=== PATIENT | male | born 1990 | race Caucasian/White ===

== ENCOUNTER 2022-05-15 19:27 | Emergency (ER) | payer BC ==
[~2022-05-15] VITALS: Ht 188 cm; Wt 113.4 kg
== END 2022-05-15 19:58 | disposition home or self-care (01) ==
LOC: ER 19:27
DX: U07.1 COVID-19 (principal)
CPT/HCPCS: 96361; 96365; 96375; 99282

== ENCOUNTER → 2025-02-05 | Outpatient (CLI) | payer SELFPAY ==
[2025-02-05 19:30] LABS: Bun/Creatinine Ratio 16.2 (12.0-20.0); Creatinine, Blood 0.99 mg/dL (0.60-1.20); Potassium, Blood 3.5 mmol/L (3.5-5.5)
== END | disposition home or self-care (01) ==
LOC: LAB 17:49 → LAB SHORT 17:49
PROVIDERS: Internal Medicine
DX: I10 Essential (primary) hypertension (principal)
CPT/HCPCS: 80048